=== PATIENT | female | born 1940 | race Caucasian/White ===

== ENCOUNTER 2017-05-02 18:19 | Emergency (ER) | payer OTHER ==
[~2017-05-02] VITALS: Ht 165.1 cm; Wt 97.5 kg
[~2017-05-02 18:19] MED LIST: ADV25050 IH; ALBU2.5V3 NEB; ALBU8.5H5 IH; CYCL-319 PO; ERGO500037 PO; FLOV220 IH; IBUP-1542 PO; LOSA50TA6 PO; MECL25TA2 PO; METO10TA96 PO; MONT10TA24 PO; PANT40TA4 PO; RANI150T5 PO; SERT50TA6 PO; SOLI10TA5 PO; TRAM50TA2 PO
[2017-05-02 18:35] VITALS: Ht 165.1 cm; Wt 97.5 kg
[2017-05-02] MEDS ORDERED: HC30CR25 TOP (20:11)
--- NOTE | 2017-05-02 20:17 | ERD ---
ER Documentation Chief Complaint Date/Time DATE: 05/02/17 TIME: 20:13 Chief Complaint PT reports rash on RLE and arm started on last night HPI 76-year-old female patient with a past medical history of hypertension, arthritis, vertigo, asthma presents to the ED complaining of a rash that started 4 days ago. Reports that she has them on her left wrist, left hand, right hand, left lower leg. Reports that it is itchy. States that she tried applying a cream but she is not sure what the name is. Reports that she also tried using onions as well as plants without alcohol to try to alleviate the itchiness. Denies any fever, chills, nausea, vomiting, chest pain, shortness of breath, weakness, numbness or tingling, loss of sensation, loss of range of motion. ROS All systems reviewed and are negative except as per history of present illness. Medications Home Meds Active Scripts Hydrocortisone* Topical (Hydrocortisone* Topical) 2.5%-28.3 Gm Cream..g., 1 APPLIC TOP BID, #1 TUB Prov:DAISY DOLAN PA-C 05/02/17 Tramadol HCl (Tramadol HCl) 50 Mg Tablet, 50 MG PO Q4 Y for PAIN, #15 TAB Prov:NHAN BELLE MD 01/29/16 Cyclobenzaprine Hcl* (Cyclobenzaprine Hcl*) 10 Mg Tablet, 10 MG PO TID, #15 TAB Prov:NHAN BELLE MD 01/29/16 Metoclopramide Hcl* (Metoclopramide Hcl*) 10 Mg Tablet, 10 MG PO Q6H Y for NAUSEA AND OR VOMITING, #10 TAB Prov:DEEDEE OREILLY DO 03/26/15 Meclizine Hcl* (Antivert*) 25 Mg Tablet, 25 MG PO Q8H for DIZZINESS, #20 TAB Prov:DEEDEE OREILLY DO 03/26/15 Reported Medications Pantoprazole* (Pantoprazole*) 40 Mg Tablet.dr, 40 MG PO DAILY, TAB 03/26/15 Montelukast Sodium* (Montelukast Sodium*) 10 Mg Tablet, 10 MG PO HS, TAB 03/26/15 Losartan Potassium* (Losartan Potassium*) 50 Mg Tablet, 50 MG PO DAILY, TAB 03/26/15 Ibuprofen* (Ibuprofen*) 600 Mg Tablet, 600 MG PO Q6H Y for PAIN, TAB 03/26/15 Fluticasone Propionate* (Flovent* 220) 13 Gm Aer.w.adap, 1 PUFF IH BID, EA 03/26/15 Albuterol Sulfate* (Albuterol Sulfate* Neb) 0.083%-3 Ml Neb, 1.25 MG NEB Q4 Y for WHEEZING AND SOB, EA 03/26/15 Solifenacin* (Vesicare*) 10 Mg Tablet, 10 MG PO DAILY, TAB 03/26/15 Albuterol Sulfate* (Albuterol Sulfate* HFA) 8.5 Gm Hfa.aer.ad, 2 PUFF IH Q4H Y for WHEEZING AND SOB, EA 03/26/15 Ranitidine Hcl* (Ranitidine Hcl*) 150 Mg Tablet, 150 MG PO DAILY, TAB 03/26/15 Sertraline Hcl* (Sertraline Hcl*) 50 Mg Tablet, 50 MG PO DAILY 05/03/13 Ergocalciferol (Vitamin D2) (VITAMIN D2) 50,000 Unit Capsule, 52364 UNIT PO Q WEEK 05/03/13 Salmeterol Xinaf/Fluticasone* (Advair 250/50 Diskus*) 1 Inh Inha, 1 INH IH BID 05/03/13 Allergies Allergies: Coded Allergies: acetaminophen (Verified Allergy, Mild, NAUSEA DIZZINESS, 05/02/17) hydrocodone (Verified Allergy, Mild, NAUSEA DIZZINESS, 05/02/17) codeine (Verified Allergy, Unknown, DIZZINESS, 01/29/16) PMhx/Soc History of Surgery: Yes (Right Hand Carpal Surgery- 2011, HYSTERECTOMY ) Anesthesia Reaction: No Hx Neurological Disorder: No Hx Respiratory Disorders: Yes (Bronchitis, ASTHMA) Hx Cardiac Disorders: Yes (Hypertension) Hx Psychiatric Problems: Yes (DEPRESSION ) Hx Miscellaneous Medical Probl: Yes (High Cholesterol, RA) Hx Alcohol Use: No Hx Substance Use: No Hx Tobacco Use: No Smoking Status: Never smoker Physical Exam Vitals Vital Signs Date Time Temp Pulse Resp B/P Pulse Ox O2 Delivery O2 Flow Rate FiO2 05/02/17 18:35 97.7 72 16 142/80 96 Physical Exam Const: [id number], well-nourished. In no acute distress. Head: Atraumatic, normocephalic Eyes: Normal Conjunctiva without injection ENT: Normal external ear, nose and mouth. Neck: Full range of motion. No meningismus. Resp: Clear to auscultation bilaterally. No wheezing, rhonchi, rales, or crackles. No accessory muscle use. No retractions. Cardio: Regular rate and rhythm, no murmurs Skin: No petechiae or rashes Back: No midline tenderness. No CVA tenderness. Ext: No cyanosis, or edema. Cap refill less than 2 seconds. Distal pulses intact bilaterally. Erythematous maculopapular 1 cm centimeter blanching single rash noted on the left wrist, left hand, right hand, left ko. No fluctuance or induration. No bleeding. No purulent discharge. Full range of motion of bilateral upper and lower extremities. Neur: Awake and alert. Normal gait and coordination. Muscle strength 5/5. Sensation intact bilaterally. Psych: Normal Mood and Affect Procedures/MDM 76-year-old female patient with a past medical history of hypertension, arthritis, vertigo, asthma presents to the ED complaining of a rash on her left wrist, left hand, right hand, left ko. Patient is afebrile and nontoxic- appearing. Patient has normal vital signs. She likely has insect bites. Patient reports that it is itchy. Low suspicion for anaphylaxis, scabies, SJS/ TEN, TSS, Lyme's Disease, syphilis, RMSF, shingles, disseminated gonorrhea chlamydia, DIC, TTP, ITP, erythema multiforme, sepsis, cellulitis, necrotizing fascitis, gangrene, meningococcemia, allergic contact dermatitis, urticaria, eczema, tinea infection, or other emergent conditions. Discharge medications: Hydrocortisone cream Follow up with primary care physician in 1-2 days. Instructed patient to return to the ED sooner for any worsening symptoms. Patient's questions were answered. Patient understood and agreed with discharge plan. Patient discharged stable. Departure Diagnosis: Primary Impression: Insect bite Encounter type: initial encounter Qualified Code: W57.XXXA - Insect bite, initial encounter Condition: Stable Patient Instructions: Self-Care for Skin Rashes, Insect Bite Referrals: COMMUNITY CLINICS YOU HAVE RECEIVED A MEDICAL SCREENING EXAM AND THE RESULTS INDICATE THAT YOU DO NOT HAVE A CONDITION THAT REQUIRES URGENT TREATMENT IN THE EMERGENCY DEPARTMENT. FURTHER EVALUATION AND TREATMENT OF YOUR CONDITION CAN WAIT UNTIL YOU ARE SEEN IN YOUR DOCTORS OFFICE WITHIN THE NEXT 1-2 DAYS. IT IS YOUR RESPONSIBILITY TO MAKE AN APPOINTMENT FOR FOLOW-UP CARE. IF YOU HAVE A PRIMARY DOCTOR --you should call your primary doctor and schedule an appointment IF YOU DO NOT HAVE A PRIMARY DOCTOR YOU CAN CALL OUR PHYSICIAN REFERRAL HOTLINE AT IF YOU CAN NOT AFFORD TO SEE A PHYSICIAN YOU CAN CHOSE FROM THE FOLLOWING [facility] [address] [facility] [facility] [address] [facility] [address] [facility] [address] [facility] [facility] [address] [facility]. [facility] [address] [facility] [facility] YOU HAVE RECEIVED A MEDICAL SCREENING EXAM AND THE RESULTS INDICATE THAT YOU DO NOT HAVE A CONDITION THAT REQUIRES URGENT TREATMENT IN THE EMERGENCY DEPARTMENT. FURTHER EVALUATION AND TREATMENT OF YOUR CONDITION CAN WAIT UNTIL YOU ARE SEEN IN YOUR DOCTORS OFFICE WITHIN THE NEXT 1-2 DAYS. IT IS YOUR RESPONSIBILITY TO MAKE AN APPOINTMENT FOR FOLOW-UP CARE. IF YOU HAVE A PRIMARY DOCTOR --you should call your primary doctor and schedule and appointment IF YOU DO NOT HAVE A PRIMARY DOCTOR YOU CAN CALL OUR PHYSICIAN REFERRAL HOTLINE AT . IF YOU CAN NOT AFFORD TO SEE A PHYSICIAN YOU CAN CHOSE FROM THE FOLLOWING [facility]: [facility] [address] [place] [address] [facility] [address] [place] [address] [facility] [address] [place] [address] [facility] URGENT CARE/SPECIALTIES Additional Instructions: Call your primary care doctor TOMORROW for an appointment during the next 2-3 days.See the doctor sooner or return here if your condition worsens before your appointment time. DAISY DOLAN PA-C May 02, 2017 20:17
--- NOTE | 2017-05-02 20:23 | ERD ---
ER Documentation Chief Complaint Date/Time DATE: 05/02/17 TIME: 20:09 Chief Complaint PT reports rash on RLE and arm started on last night ROS All systems reviewed and are negative except as per history of present illness. Medications Home Meds Active Scripts Tramadol HCl (Tramadol HCl) 50 Mg Tablet, 50 MG PO Q4 Y for PAIN, #15 TAB Prov:NHAN BELLE MD 01/29/16 Cyclobenzaprine Hcl* (Cyclobenzaprine Hcl*) 10 Mg Tablet, 10 MG PO TID, #15 TAB Prov:NHAN BELLE MD 01/29/16 Metoclopramide Hcl* (Metoclopramide Hcl*) 10 Mg Tablet, 10 MG PO Q6H Y for NAUSEA AND OR VOMITING, #10 TAB Prov:DEEDEE OREILLY DO 03/26/15 Meclizine Hcl* (Antivert*) 25 Mg Tablet, 25 MG PO Q8H for DIZZINESS, #20 TAB Prov:DEEDEE OREILLY DO 03/26/15 Reported Medications Pantoprazole* (Pantoprazole*) 40 Mg Tablet.dr, 40 MG PO DAILY, TAB 03/26/15 Montelukast Sodium* (Montelukast Sodium*) 10 Mg Tablet, 10 MG PO HS, TAB 03/26/15 Losartan Potassium* (Losartan Potassium*) 50 Mg Tablet, 50 MG PO DAILY, TAB 03/26/15 Ibuprofen* (Ibuprofen*) 600 Mg Tablet, 600 MG PO Q6H Y for PAIN, TAB 03/26/15 Fluticasone Propionate* (Flovent* 220) 13 Gm Aer.w.adap, 1 PUFF IH BID, EA 03/26/15 Albuterol Sulfate* (Albuterol Sulfate* Neb) 0.083%-3 Ml Neb, 1.25 MG NEB Q4 Y for WHEEZING AND SOB, EA 03/26/15 Solifenacin* (Vesicare*) 10 Mg Tablet, 10 MG PO DAILY, TAB 03/26/15 Albuterol Sulfate* (Albuterol Sulfate* HFA) 8.5 Gm Hfa.aer.ad, 2 PUFF IH Q4H Y for WHEEZING AND SOB, EA 03/26/15 Ranitidine Hcl* (Ranitidine Hcl*) 150 Mg Tablet, 150 MG PO DAILY, TAB 03/26/15 Sertraline Hcl* (Sertraline Hcl*) 50 Mg Tablet, 50 MG PO DAILY 05/03/13 Ergocalciferol (Vitamin D2) (VITAMIN D2) 50,000 Unit Capsule, 69136 UNIT PO Q WEEK 05/03/13 Salmeterol Xinaf/Fluticasone* (Advair 250/50 Diskus*) 1 Inh Inha, 1 INH IH BID 05/03/13 Allergies Allergies: Coded Allergies: acetaminophen (Verified Allergy, Mild, NAUSEA DIZZINESS, 05/02/17) hydrocodone (Verified Allergy, Mild, NAUSEA DIZZINESS, 05/02/17) codeine (Verified Allergy, Unknown, DIZZINESS, 01/29/16) PMhx/Soc History of Surgery: Yes (Right Hand Carpal Surgery- 2011, HYSTERECTOMY ) Anesthesia Reaction: No Hx Neurological Disorder: No Hx Respiratory Disorders: Yes (Bronchitis, ASTHMA) Hx Cardiac Disorders: Yes (Hypertension) Hx Psychiatric Problems: Yes (DEPRESSION ) Hx Miscellaneous Medical Probl: Yes (High Cholesterol, RA) Hx Alcohol Use: No Hx Substance Use: No Hx Tobacco Use: No Smoking Status: Never smoker Physical Exam Vitals Vital Signs Date Time Temp Pulse Resp B/P Pulse Ox O2 Delivery O2 Flow Rate FiO2 05/02/17 18:35 97.7 72 16 142/80 96 Physical Exam Const: [] Head: Atraumatic Eyes: Normal Conjunctiva ENT: Normal External Ears, Nose and Mouth. Neck: Full range of motion..~ No meningismus. Resp: Clear to auscultation bilaterally Cardio: Regular rate and rhythm, no murmurs Abd: Soft, non tender, non distended. Normal bowel sounds Skin: No petechiae or rashes Back: No midline or flank tenderness Ext: No cyanosis, or edema Neur: Awake and alert Psych: Normal Mood and Affect Procedures/MDM Attending physician note Subjective---76-year-old female with FOUR-day history of skin lesions on her left ko. Agree with detailed history and physical of mid-level provider. Objective-erythematous papules on Ko 2. No erythema, warmth, streaking, fluctuance. Assessment--likely local reaction to insect bites on lower extremities Plan-topical corticosteroids and antihistamines, observation and return precautions and primary care follow-up. NHAN BELLE MD May 02, 2017 20:19
== END 2017-05-02 20:35 | disposition home or self-care (01) ==
LOC: FTE 18:19
DX: S80.862A Insect bite (nonvenomous), left lower leg, initial encounter (principal); S60.562A Insect bite (nonvenomous) of left hand, initial encounter; S60.561A Insect bite (nonvenomous) of right hand, initial encounter; S60.862A Insect bite (nonvenomous) of left wrist, initial encounter; I10 Essential (primary) hypertension; J45.909 Unspecified asthma, uncomplicated; W57.XXXA Bitten or stung by nonvenomous insect and other nonvenomous arthropods, initial encounter; Y92.9 Unspecified place or not applicable
CPT/HCPCS: 99283

== ENCOUNTER 2017-06-13 15:47 | Emergency (ER) | payer OTHER ==
[~2017-06-13] VITALS: Wt 96.4 kg
[~2017-06-13 15:47] MED LIST changes: +HC30CR25 TOP
[2017-06-13] MEDS ORDERED: KETOROLAC 30 MG INJ IM STA (16:11)
--- NOTE | 2017-06-13 17:02 | RADRPT ---
PROCEDURE: XR Cervical Spine. CLINICAL INDICATION: Neck Pain. TECHNIQUE: AP, open mouth odontoid, swimmers, and lateral views of the cervical spine were perform ed. The images were reviewed on a PACS workstation. COMPARISON: None. FINDINGS: The vertebral body alignment, height and osseous mineralization are normal. Mild degenerative disc d isease is present. There are no abnormal calcifications. The prevertebral soft tissues are normal. N o radiopaque foreign bodies are identified. The skull is intact. IMPRESSION: No acute fracture or dislocation. Mild degenerative disc disease is present. RPTAT: PP .Ryanne Waldrop MD, MD Date Time Electronically viewed and signed by .Ryanne Waldrop MD, on 06/13/2017 17:02 .F/
[2017-06-13] MEDS ORDERED: PRED20TA PO (17:12)
[2017-06-13] MEDS ORDERED: TRAM-40 PO (17:12)
[2017-06-13] MEDS ORDERED: CYCL-319 PO (17:12)
--- NOTE | 2017-06-13 17:15 | ERD ---
ER Documentation Chief Complaint Chief Complaint neck rad left arm pain x 2 mos HPI 76-year-old female complains of neck pain radiating to left arm for last 2 months. She denies any history of trauma. She has some slight sensation of weakness but is able to raise her arms. She denies any cough chest pain, shortness breath, fevers, bowel bladder incontinence, weakness of the lower extremities.. ROS All systems reviewed and are negative except as per history of present illness. Medications Home Meds Active Scripts Prednisone* (Prednisone*) 20 Mg Tab, 40 MG PO DAILY for 3 Days, TAB Prov:NHAN BELLE MD 06/13/17 Tramadol Hcl* (Ultram*) 50 Mg Tablet, 50 MG PO Q6H Y for PAIN, #20 TAB Prov:NHAN BELLE MD 06/13/17 Cyclobenzaprine Hcl* (Cyclobenzaprine Hcl*) 10 Mg Tablet, 10 MG PO Q8 Y for PAIN , #20 TAB Prov:NHAN BELLE MD 06/13/17 Hydrocortisone* Topical (Hydrocortisone* Topical) 2.5%-28.3 Gm Cream..g., 1 APPLIC TOP BID, #1 TUB Prov:DAISY DOLAN PA-C 05/02/17 Tramadol HCl (Tramadol HCl) 50 Mg Tablet, 50 MG PO Q4 Y for PAIN, #15 TAB Prov:NHAN BELLE MD 01/29/16 Cyclobenzaprine Hcl* (Cyclobenzaprine Hcl*) 10 Mg Tablet, 10 MG PO TID, #15 TAB Prov:NHAN BELLE MD 01/29/16 Metoclopramide Hcl* (Metoclopramide Hcl*) 10 Mg Tablet, 10 MG PO Q6H Y for NAUSEA AND OR VOMITING, #10 TAB Prov:DEEDEE OREILLY DO 03/26/15 Meclizine Hcl* (Antivert*) 25 Mg Tablet, 25 MG PO Q8H for DIZZINESS, #20 TAB Prov:DEEDEE OREILLY DO 03/26/15 Reported Medications Pantoprazole* (Pantoprazole*) 40 Mg Tablet.dr, 40 MG PO DAILY, TAB 03/26/15 Montelukast Sodium* (Montelukast Sodium*) 10 Mg Tablet, 10 MG PO HS, TAB 03/26/15 Losartan Potassium* (Losartan Potassium*) 50 Mg Tablet, 50 MG PO DAILY, TAB 03/26/15 Ibuprofen* (Ibuprofen*) 600 Mg Tablet, 600 MG PO Q6H Y for PAIN, TAB 03/26/15 Fluticasone Propionate* (Flovent* 220) 13 Gm Aer.w.adap, 1 PUFF IH BID, EA 03/26/15 Albuterol Sulfate* (Albuterol Sulfate* Neb) 0.083%-3 Ml Neb, 1.25 MG NEB Q4 Y for WHEEZING AND SOB, EA 03/26/15 Solifenacin* (Vesicare*) 10 Mg Tablet, 10 MG PO DAILY, TAB 03/26/15 Albuterol Sulfate* (Albuterol Sulfate* HFA) 8.5 Gm Hfa.aer.ad, 2 PUFF IH Q4H Y for WHEEZING AND SOB, EA 03/26/15 Ranitidine Hcl* (Ranitidine Hcl*) 150 Mg Tablet, 150 MG PO DAILY, TAB 03/26/15 Sertraline Hcl* (Sertraline Hcl*) 50 Mg Tablet, 50 MG PO DAILY 05/03/13 Ergocalciferol (Vitamin D2) (VITAMIN D2) 50,000 Unit Capsule, 04801 UNIT PO Q WEEK 05/03/13 Salmeterol Xinaf/Fluticasone* (Advair 250/50 Diskus*) 1 Inh Inha, 1 INH IH BID 05/03/13 Allergies Allergies: Coded Allergies: acetaminophen (Verified Allergy, Mild, NAUSEA DIZZINESS, 05/02/17) hydrocodone (Verified Allergy, Mild, NAUSEA DIZZINESS, 05/02/17) codeine (Verified Allergy, Unknown, DIZZINESS, 01/29/16) PMhx/Soc History of Surgery: Yes (Right Hand Carpal Surgery- 2012, HYSTERECTOMY ) Anesthesia Reaction: No Hx Neurological Disorder: No Hx Respiratory Disorders: Yes (Bronchitis, ASTHMA) Hx Cardiac Disorders: Yes (Hypertension) Hx Psychiatric Problems: Yes (DEPRESSION ) Hx Miscellaneous Medical Probl: Yes (High Cholesterol, RA) Hx Alcohol Use: No Hx Substance Use: No Hx Tobacco Use: No Physical Exam Vitals Vital Signs Date Time Temp Pulse Resp B/P Pulse Ox O2 Delivery O2 Flow Rate FiO2 06/13/17 15:51 98.7 83 18 155/70 99 Physical Exam Const: [] Alert, [id number]. Head: Atraumatic Eyes: Normal Conjunctiva ENT: Normal External Ears, Nose and Mouth. Neck: Full range of motion..~ No meningismus. Tenderness in left cervical paraspinous muscles. No midline tenderness or deformities. Resp: Clear to auscultation bilaterally Cardio: Regular rate and rhythm, no murmurs Abd: Soft, non tender, non distended. Normal bowel sounds Skin: No petechiae or rashes Back: No midline or flank tenderness Ext: No cyanosis, or edema Neur: Awake and alert with normal gait. No appreciable focal neurologic deficits. Psych: Normal Mood and Affect Results 24 hrs Current Medications Medications (Trade) Dose Ordered Sig/Tracy Route PRN Reason Start Time Stop Time Status Last Admin Dose Admin Ketorolac Tromethamine (Toradol) 30 mg ONCE STAT IM 06/13/17 16:11 06/13/17 16:13 DC 06/13/17 16:22 Procedures/MDM EKG: Rate/Rhythm: [Normal Sinus Rhythm] rate equals 74 QRS, ST, T-waves: [No changes consistent w/ acute ischemia] Impression: [No evidence of ischemia or arrhythmia] impression-low voltage , otherwise normal EKG X-ray C spine 3V Interpreted by me: Bones: [No fracture] Joints: [No dislocation] Foreign body: [None] impression-mild degenerative changes of the cervical spine. Given Toradol 30 mg IM. Patient presents with signs and symptoms of cervical radicular pain. She will be treated with tramadol, Flexeril and short course of prednisone and primary care follow-up and possible special evaluation and further study. She will return for chest pain, shortness breath, fevers, neurologic deficits, new or worsening symptoms. No signs or symptoms suggest epidural abscess, transverse myelitis, bacterial infection, neurologic deficit, central lesions. The patient was stable with no new complaints during the ER course. Clinically, there is no current evidence to suggest meningitis, sepsis, acute abdomen, pneumonia, acute coronary syndrome, pulmonary embolism, or any other emergent condition appearing to require further evaluation or hospitalization. The patient should certainly return for any new or worsening symptoms per the aftercare instructions. They should otherwise follow-up with her primary care doctor for reevaluation this week. Departure Diagnosis: Primary Impression: Radicular pain Condition: Stable Patient Instructions: Radiculopathy, Cervical Additional Instructions: Pain likely from pinched nerve emanating from neck. See primary doctor for further evaluation possible specialty evaluation and further study. Recheck otherwise for fevers, chest pain, new or worsening symptoms. NHAN BELLE MD Jun 13, 2017 17:15
== END 2017-06-13 17:26 | disposition home or self-care (01) ==
LOC: FTE 15:47
DX: M54.12 Radiculopathy, cervical region (principal); J45.909 Unspecified asthma, uncomplicated; I10 Essential (primary) hypertension
CPT/HCPCS: 72040; 96372; 99284; J1885

== ENCOUNTER 2018-01-24 08:45 | Emergency (ER) | END 2018-01-24 12:30 | disposition home or self-care (01) ==

== ENCOUNTER 2018-05-02 19:00 | Emergency (ER) | END 2018-05-02 22:07 | disposition home or self-care (01) ==

== ENCOUNTER 2019-05-23 10:46 | Emergency (ER) | payer OTHER, MEDICAID ==
[~2019-05-23] VITALS: Ht 165.1 cm; Wt 84.7 kg
[~2019-05-23 10:46] MED LIST changes: -ADV25050 IH; -ALBU2.5V3 NEB; -ALBU8.5H5 IH; +ASPI-817 PO; +ASPI81TA52 PO; -CYCL-319 PO; +ERGO500013 PO; -ERGO500037 PO; -FLOV220 IH; +FLOV220 INHALATION; -HC30CR25 TOP; -IBUP-1542 PO; +LOSA50TA14 PO; -LOSA50TA6 PO; -MECL25TA2 PO; +METF-849 PO; +METF500T24 PO; -METO10TA96 PO; +MIRA50TA PO; +ONDA4TAB14 PO; +PANT40TA3 PO; +SOLI10TA2 PO; -SOLI10TA5 PO; -TRAM50TA2 PO; +TRIA15CR55 TOP
[2019-05-23 10:54] VITALS: Ht 165.1 cm; Wt 84.7 kg
[2019-05-23] MEDS ORDERED: ONDANSETRON 4 MG INJ IV STA (11:15)
[2019-05-23 14:24] VITALS: BP 125/68; PULSE 69; RESP 18
== END 2019-05-23 14:26 | disposition home or self-care (01) ==
LOC: E/R 10:46
DX: G45.9 Transient cerebral ischemic attack, unspecified (principal); R10.13 Epigastric pain; R11.2 Nausea with vomiting, unspecified; I10 Essential (primary) hypertension; J45.909 Unspecified asthma, uncomplicated; E11.9 Type 2 diabetes mellitus without complications; Z79.84 Long term (current) use of oral hypoglycemic drugs; Z79.82 Long term (current) use of aspirin
CPT/HCPCS: 36415; 70450; 71045; 80048; 80061; 82962; 83036; 83690; 84484; 85025; 85610; 85730; 93005; 96374; 99285; J2405